=== PATIENT | male | born 1960 | race Native Hawaiian/Other Pacific Islander ===

== ENCOUNTER 2016-11-05 08:52 | Outpatient (CLI) | payer OTHER ==
[2016-11-05 09:59] LABS: PLATELET COUNT 280 K/uL (142-355)
[2016-11-05 11:21] LABS: POTASSIUM 4.7 mmol/L (3.6-5.2); SODIUM 135 mmol/L (136-145)
== END 2016-11-05 09:52 | disposition home or self-care (01) ==
LOC: LABW 08:52 → US 09:30 → LABW 09:52
PROVIDERS: Internal Medicine Cardiovascular Disease
DX: R09.89 Other specified symptoms and signs involving the circulatory and respiratory systems (principal); Z79.899 Other long term (current) drug therapy; Z51.81 Encounter for therapeutic drug level monitoring; R60.9 Edema, unspecified
CPT/HCPCS: 36415; 80048; 83880; 85027; 85651

== ENCOUNTER 2021-08-20 09:12 | Outpatient (CLI) | payer OTHER | END 2021-08-20 21:52 | disposition home or self-care (01) | LOC: CT 09:12 | PROVIDERS: ATTEND Internal Medicine Cardiovascular Disease | DX: I73.9 Peripheral vascular disease, unspecified (principal) | CPT/HCPCS: 36415; 82565; 84520 ==

== ENCOUNTER 2021-10-03 12:30 | Outpatient (CLI) | payer OTHER ==
[2021-10-03 13:04] LABS: PLATELET COUNT 246 K/uL (142-355)
[2021-10-03 13:13] LABS: POTASSIUM 4.7 mmol/L (3.6-5.2)
== END 2021-10-03 19:00 | disposition home or self-care (01) ==
LOC: LABW 12:30
PROVIDERS: ATTEND Internal Medicine Cardiovascular Disease
DX: Z79.899 Other long term (current) drug therapy (principal)
CPT/HCPCS: 36415; 80053; 80061; 85027